=== PATIENT | female | born 1995 | race Asian ===

== ENCOUNTER 2022-02-22 20:07 | Emergency (ER) | payer OTHER ==
[~2022-02-22] VITALS: Ht 154.9 cm; Wt 50.8 kg
[2022-02-22 20:13] VITALS: BP_SYST 118
--- NOTE | 2022-02-22 20:16 | NUR ---
PATIENT STATES SHE SLEPT WRONG LAST NIGHT AND WOKE UP WITH LEFT SHOULDER PAIN, NO TRAUMA NOTED AT ALL, JUST STATES SHE WANTS PAIN RELIEVERS.
[2022-02-22] MEDS ORDERED: IBUP-1969 PO (21:35)
[2022-02-22] MEDS ORDERED: SOM350 PO (21:35)
--- NOTE | 2022-02-22 21:45 | NUR ---
DR. HINSON WITH PATIENT.
[2022-02-22] MEDS ORDERED: carisoprodoL 350 MG TABLET ONE (21:55)
[2022-02-22] MEDS ORDERED: IBUPROFEN 800 MG TABLET ONE (21:56)
--- NOTE | 2022-02-22 21:59 | NUR ---
Patient given written and verbal discharge instructions and verbalizes understanding. ER MD discussed with patient the results and treatment provided. Patient in stable condition. ID arm band removed. IV catheter removed intact and dressing applied, no active bleeding. Rx of SOMA, IBUPROFEN given. Patient educated on pain management and to follow up with PMD. Pain Scale . Opportunity for questions provided and answered. Medication side effect fact sheet provided.
[2022-02-22] MEDS ORDERED: carisoprodoL 350 MG TABLET PO SCH (22:00)
[2022-02-22] MEDS ORDERED: IBUPROFEN 800 MG TABLET PO ONE (22:00)
== END 2022-02-22 21:59 | disposition home or self-care (01) ==
LOC: SED 20:07
DX: S43.402A Unspecified sprain of left shoulder joint, initial encounter (principal); Z79.899 Other long term (current) drug therapy; X50.1XXA Overexertion from prolonged static or awkward postures, initial encounter; Y93.84 Activity, sleeping; Y92.89 Other specified places as the place of occurrence of the external cause; Y99.8 Other external cause status
CPT/HCPCS: 99283